=== PATIENT | male | born 1935 | race Caucasian/White ===

== ENCOUNTER → 2017-03-27 | Outpatient (CLI) | payer MEDICARE, OTHER ==
[~2017-03-27] MED LIST: AMIODARONE HCL200 MG PO; ASPIR 8181 MG PO; COREG 25MG TAB25 MG PO; COZAAR50 MG PO; ELIQUIS5 MG PO; LIPITOR20 MG PO; PLAVIX75 MG PO; ZANTAC150 MG PO
== END ==
LOC: LAB 09:33
PROVIDERS: Internal Medicine
DX: I11.0 Hypertensive heart disease with heart failure (principal); I50.22 Chronic systolic (congestive) heart failure; I48.91 Unspecified atrial fibrillation; I25.10 Atherosclerotic heart disease of native coronary artery without angina pectoris; I25.5 Ischemic cardiomyopathy; E11.9 Type 2 diabetes mellitus without complications; Z79.899 Other long term (current) drug therapy
CPT/HCPCS: 36415; 80048; 80061; 80076; 83036; 84439; 84443; 84481

== ENCOUNTER → 2017-04-07 | Outpatient (CLI) | payer MEDICARE, OTHER | LOC: HEART 5 08:34 | DX: Z79.899 Other long term (current) drug therapy (principal) | CPT/HCPCS: 94060; 94729 ==

== ENCOUNTER → 2021-03-05 | Outpatient (CLI) | payer MEDICARE, OTHER ==
[~2021-03-05] MED LIST changes: +CLEOCIN HCL300 MG PO; +CORTIZONE-1057 GM TP; +HALOBETASOL 0.05% TD; +IPRATROPIUM BRO15 ML; +LEVAQUIN500 MG PO; +LISINOPRIL2.5 MG PO; +MULTIVITAMIN1 EACH PO; +NITROGLYCERIN0.4 MG SL; +TYLENOL WITH C1 EACH PO; +VISTARIL25 MG PO
== END ==
LOC: HEART 5 09:05
DX: R06.02 Shortness of breath (principal); Z79.899 Other long term (current) drug therapy
CPT/HCPCS: 94060; 94729

== ENCOUNTER → 2022-04-29 | Outpatient (CLI) | payer MEDICARE, OTHER ==
[~2022-04-29] MED LIST changes: +ASPIRIN EC81 MG PO; +MECLIZINE HCL25 MG PO
== END ==
LOC: HEART 5 09:19
DX: R06.02 Shortness of breath (principal); Z79.899 Other long term (current) drug therapy; R94.2 Abnormal results of pulmonary function studies
CPT/HCPCS: 94060; 94729

== ENCOUNTER 2022-06-08 18:48 | Emergency (ER) | payer MEDICARE, OTHER ==
[2022-06-08 19:34] LABS: HEMOGLOBIN 13.6 gm/dl (14.0-17.5); RED BLOOD COUNT 4.62 M/UL (4.20-5.50); WHITE BLOOD COUNT 5.5 K/UL (4.5-11.0)
[2022-06-08] MEDS ORDERED: CLEOCIN HCL150 MG PO (23:44)
== END 2022-06-08 23:50 | disposition left against medical advice (07) ==
LOC: ER1 18:48
PROVIDERS: Nurse Practitioner
DX: L03.115 Cellulitis of right lower limb (principal); I11.9 Hypertensive heart disease without heart failure; E11.9 Type 2 diabetes mellitus without complications; Z88.2 Allergy status to sulfonamides; Z91.041 Radiographic dye allergy status; Z95.1 Presence of aortocoronary bypass graft; Z95.0 Presence of cardiac pacemaker
CPT/HCPCS: 80053; 83880; 85025; 86140; 99283